=== PATIENT | male | born 1970 | race African-American/Black ===

== ENCOUNTER 2016-09-18 15:18 | Emergency (ER) | payer SELFPAY ==
[~2016-09-18] VITALS: Ht 177.8 cm; Wt 77.0 kg
[2016-09-18] MEDS ORDERED: INSULIN REGULAR (HUMULIN R) 300UNITS/3ML SUBCUT ONE (16:30)
[2016-09-18 16:53] LABS: EOSINOPHILS % 1.7 % (0.0-5.0); HEMATOCRIT. 36.4 % (42.0-52.0); HEMOGLOBIN. 12.4 g/dL (14.0-18.0); LYMPHOCYTES % 42.5 % (20.0-50.0); MEAN CORPUSCULAR HEMOGLOBIN 29.5 pg (28.0-32.0); MEAN CORPUSCULAR VOLUME 86.5 fL (80.0-94.0); MONOCYTES % 7.7 % (2.0-8.0); NEUTROPHILS % 47.1 % (40.0-76.0); PLATELET 340 x1000/uL (130-400); RED CELL DISTRIBUTION WIDTH 14.1 % (11.6-14.6)
[2016-09-18 16:56] LABS: CHLORIDE 102 mEq/L (98-107)
[2016-09-18 17:04] LABS: CARBON DIOXIDE 27 mEq/L (21-32)
[2016-09-18 17:24] LABS: CLARITY URINE CLEAR (CLEAR); COLOR URINE YELLOW (YELLOW); GLUCOSE URINE 3+ (NEGATIVE); KETONES URINE TRACE (NEGATIVE); LEUKOCYTE ESTERASE URINE NEGATIVE (NEGATIVE); NITRITE URINE NEGATIVE (NEGATIVE); OCCULT BLOOD URINE NEGATIVE (NEGATIVE); PROTEIN URINE NEGATIVE (NEGATIVE); SPECIFIC GRAVITY URINE 1.034 (1.005-1.030)
[2016-09-18] MEDS ORDERED: HYDROCODONE/ACETAMINOPHEN 5/325MG TABLET PO ONE (18:15)
[2016-09-18 23:45] VITALS: BP 139/88
== END 2016-09-19 00:55 | disposition left against medical advice (07) ==
LOC: ER 15:28
DX: M79.645 Pain in left finger(s) (principal); E11.9 Type 2 diabetes mellitus without complications; V13.4XXA Pedal cycle driver injured in collision with car, pick-up truck or van in traffic accident, initial encounter; Y93.89 Activity, other specified; Y92.89 Other specified places as the place of occurrence of the external cause; Y99.8 Other external cause status
CPT/HCPCS: 36415; 73130; 80053; 81001; 82010; 82962; 83690; 85025; 96372; 99285; J1815; Z7610

== ENCOUNTER 2016-09-19 07:38 | Emergency (ER) | payer SELFPAY ==
[~2016-09-19] VITALS: Ht 152.4 cm; Wt 58.8 kg
[2016-09-19 07:58] VITALS: BP 120/90
== END 2016-09-19 10:33 | disposition home or self-care (01) ==
LOC: ER 09:15
DX: S62.102A Fracture of unspecified carpal bone, left wrist, initial encounter for closed fracture (principal); E11.9 Type 2 diabetes mellitus without complications; X58.XXXA Exposure to other specified factors, initial encounter; Y93.89 Activity, other specified; Y92.89 Other specified places as the place of occurrence of the external cause; Y99.8 Other external cause status
CPT/HCPCS: 29125; 99283